=== PATIENT | female | born 1945 | race Caucasian/White ===

== ENCOUNTER → 2017-01-17 | Outpatient (CLI) | payer OTHER | LOC: FIMAGING 07:22 | DX: Z12.31 Encounter for screening mammogram for malignant neoplasm of breast (principal) | CPT/HCPCS: G0202 ==

== ENCOUNTER → 2018-01-19 | Outpatient (CLI) | payer OTHER | LOC: FIMAGING 09:28 | PROVIDERS: ATTEND Internal Medicine | DX: Z12.31 Encounter for screening mammogram for malignant neoplasm of breast (principal) ==

== ENCOUNTER 2018-03-13 19:17 | Observation (INO) | payer OTHER ==
[2018-03-13] MEDS ORDERED: NS 500 ML IV ONE (19:35)
[2018-03-13] MEDS ORDERED: ACETAMINOPHEN 500 MG TAB PO ONE (19:37)
[2018-03-13] MEDS ORDERED: ONDANSETRON 4 MG/2 ML VIAL IVP ONE (19:52)
--- NOTE | 2018-03-13 20:19 | EDPHY ---
H & P Time Seen by Provider: 03/13/18 19:35 HPI/ROS: HPI Diarrhea, C diff positive. 73-year-old female by private vehicle. This patient reports that she was treated with a 10 day course of amoxicillin starting on February 20. This was prescribe secondary to a facial infection. At about day 8 into this antibiotic course she developed watery diarrhea. This persisted. She finished the course of antibiotics. She reports that since Friday the diarrhea has worsened and become mucousy. She has also experienced intermittent fever and lower abdominal cramping. She saw her primary care physician recently regarding this complaint. Stool sample was obtained. She received a call from her primary care physician today stating that the sample came back positive for Clostridium difficile. She was told to come to the emergency department for evaluation. She reports that also today she developed nausea and started vomiting. She has had 3 episodes of vomiting. Describes this is nonbilious nonbloody. She denies any blood in her stool. ROS: Constitutional: No fever, no chills. No weakness. Eyes: No discharge. No changes in vision. ENT: No sore throat. No nasal congestion or rhinorrhea. Respiratory: No cough. No shortness of breath. Cardiac: No chest pain, no palpitations. Gastrointestinal: As above. Genitourinary: No hematuria. No dysuria or increased frequency with urination. Musculoskeletal: No back pain. No neck pain. No myalgias or arthralgias. Skin: No rashes. Neurological: No headache. No focal weakness or altered sensation. Past medical history: Hypertension, hypothyroid. Social history: Here by herself. Nonsmoker. No alcohol. Physical Exam: General Appearance: Alert, no distress. This patient is responding to questions appropriately and in full sentences. This patient appears well- hydrated and well-nourished. Eyes: Pupils equal and round no pallor or injection. No lid edema, erythema or injection. Respiratory: There are no retractions, lungs are clear to auscultation with good air movement bilaterally. Cardiovascular: Regular rate and rhythm. No murmur. Gastrointestinal: Abdomen is soft and nontender, no masses, bowel sounds normal. No focal tenderness at McBurney's point. No Wahl sign. Neurological: Motor sensory function is grossly intact. Cranial nerves are normal. Gait is normal. Skin: Warm and dry, no rashes. Musculoskeletal: Neck is supple and nontender. Extremities are symmetrical. All joints range without pain or impingement. Psychiatric: No agitation. No depression. Database: EKG: Imaging: Procedures: Emergency department course: Patient had an episode of bilious vomiting in the emergency department shortly after arrival. Vital signs reviewed. She is moderately hypertensive. Febrile at 38.9. IV was placed. She was started on IV normal saline with 500 cc to 1 L to be given over the next 1-2 hours. She was given 4 mg of IV Zofran and 20 mg of IV Pepcid. After nausea and vomiting controlled. The patient was given 125 mg of oral vancomycin. 10:30 p.m., patient re-evaluated. Resting comfortably at this time. She has had no further vomiting. She has received 1 L of IV normal saline. She states she is feeling better. Fever resolved. Heart rate currently 97. I discussed the results of her diagnostic testing. She lives alone. She does not want to be discharged tonight. We will admit her to the hospitalist service overnight for observation and IV fluid hydration. Hospitalist paged. 11:35 p.m., spoke with hospitalist, Dr. Arizmendi. Case discussed in detail with her. She accepts this patient for admission. The patient's remaining emergency department course under my care has been uneventful. She was admitted in stable condition to the hospitalist service. Differential Diagnosis: The differential diagnosis on this patient includes but is not limited to Clostridium difficile colitis, enteritis, food-borne illness. This represents a partial list of diagnoses considered. These considerations are based on history, physical exam, past history, reassessment and diagnostic testing. Smoking Status: Never smoked Constitutional: Initial Vital Signs Temperature (C) 38.9 C H 03/13/18 19:22 Heart Rate 96 03/13/18 19:22 Respiratory Rate 18 03/13/18 19:22 Blood Pressure 167/80 H 03/13/18 19:22 O2 Sat (%) 94 03/13/18 19:22 O2 Delivery Mode Room Air Allergies/Adverse Reactions: Estrogens Allergy (Verified 03/13/18 19:28) Sulfa (Sulfonamide Antibiotics) Allergy (Verified 03/13/18 19:28) MOLDS Allergy (Uncoded 03/13/18 19:28) PEANUTS Allergy (Uncoded 03/13/18 19:28) SEAFOOD Allergy (Uncoded 03/13/18 19:28) Home Medications: Medication Instructions Recorded Calcium/D3/Mag Ox/Documentation Nurse/Dmitry/Zn 1 each PO BID 03/14/18 [Caltrate+D3 Plus Mineral Minis] Folic Acid [Folic Acid 1 MG (*)] 1 mg PO DAILY 03/14/18 Iron/Docusate Sodium 1 each PO BID 03/14/18 [Germán-Sequels 50 mg] Levothyroxine [Synthroid 50 mcg 50 mcg PO DAILY06 03/14/18 (*)] Lisinopril/Hctz 10/12.5 mg 2 ea PO DAILY 03/14/18 [Zestoretic/Prinzide 10/12.5MG (*)] Multivitamins [Multivitamin (*)] 1 each PO DAILY 03/14/18 Ondansetron Odt [Zofran Odt 4 mg 4 mg PO Q6H PRN #10 tab 03/14/18 (*)] Vancomycin [Vancomycin (*)] 125 mg PO Q6 #40 cap 03/14/18 traMADol [Ultram 50 mg (*)] 50 mg PO QID 03/14/18 Medical Decision Making - Data Points Laboratory Results: Laboratory Results 03/13/18 20:00 03/13/18 20:00 Microbiology Results: MICROBIOLOGY 03/13/18 20:00 Blood Blood Culture - Preliminary 03/13/18 20:05 Blood Blood Culture - Preliminary Medications Given: Discontinued Medications Acetaminophen (Tylenol) 1,000 mg PO EDNOW ONE Stop: 03/13/18 19:38 Last Admin: 03/13/18 19:54 Dose: 1,000 mg Sodium Chloride (Ns) 500 mls @ 0 mls/hr IV ONCE ONE; Wide Open PRN Reason: Protocol Stop: 03/13/18 19:36 Last Admin: 03/13/18 19:55 Dose: 500 mls Famotidine/Sodium Chloride (Pepcid 20 Mg (Premix)) 50 mls @ 200 mls/hr IV EDNOW ONE Stop: 03/13/18 20:36 Last Admin: 03/13/18 20:46 Dose: 50 mls Sodium Chloride (Ns) 1,000 mls @ 125 mls/hr IV CONT WILLIE Stop: 09/09/18 22:59 Last Admin: 03/14/18 05:42 Dose: 1,000 mls Levothyroxine Sodium (Synthroid) 50 mcg PO DAILY06 WILLIE Stop: 09/10/18 05:59 Last Admin: 03/14/18 05:42 Dose: 50 mcg Ondansetron HCl (Zofran) 4 mg IVP EDNOW ONE Stop: 03/13/18 19:53 Last Admin: 03/13/18 19:55 Dose: 4 mg Vancomycin HCl (Vancocin Oral Liquid) 125 mg PO QID ONE PRN Reason: Protocol Stop: 03/13/18 20:24 Last Admin: 03/13/18 20:46 Dose: 125 mg Vancomycin HCl (Vancocin Oral Liquid) 125 mg PO Q6H WILLIE PRN Reason: Protocol Stop: 04/13/18 02:59 Last Admin: 03/14/18 09:43 Dose: 125 mg Departure - Departure Disposition: [facility] Acute Clinical Impression: Clostridium difficile colitis
[2018-03-13 20:20] LABS: PLATELET COUNT 263 10^3/uL (150-400)
[2018-03-13] MEDS ORDERED: FAMOTIDINE 20 MG/NACL 50 ML IV ONE (20:22)
[2018-03-13] MEDS ORDERED: VANCOMYCIN 125 MG/2.5 ML UDL PO ONE (20:23)
[2018-03-13] MEDS: NS 1,000 ML IV SCH (22:59)
[2018-03-13] MEDS ORDERED: NS 1,000 ML IV SCH (23:45)
[2018-03-13] MEDS ORDERED: ONDANSETRON 4 MG/2 ML VIAL IVP PRN (23:49)
[2018-03-13] MEDS ORDERED: ACETAMINOPHEN 325 MG TAB PO PRN (23:49)
[2018-03-13] MEDS ORDERED: LORazepam 0.5 MG TAB PO PRN (23:49)
[2018-03-13] MEDS ORDERED: HYDROCODONE/APAP 5/325 TAB PO PRN (23:49)
--- NOTE | 2018-03-14 00:24 | PDGENHP ---
History and Physical - Chief Complaint Nausea, vomiting, diarrhea and abdominal pain the, C diff positive - History of Present Illness Source-patient provides history appears reliable. EMR was reviewed and case discussed with ED provider. HPI-this is a pleasant 73-year-old female with past medical history significant for HTN, hypothyroidism who presents emergency department today after she was called by PCP regarding a positive C diff study. Patient was treated with amoxicillin on 02/20/2018. Day 8. Of 10 patient reports that she developed watery diarrhea without any melena hematochezia. Four days ago patient reports that she began to develop some chills. She continued to have watery diarrhea. She also developed some abdominal cramping. Today patient reports that she developed a fever as well as nausea vomiting nonbilious nonbloody. Additionally secondary to her ongoing diarrhea patient has had declining oral intake and decreased appetite. History Information - Allergies/Home Medication List Allergies/Adverse Reactions: Estrogens Allergy (Verified 03/13/18 19:28) Sulfa (Sulfonamide Antibiotics) Allergy (Verified 03/13/18 19:28) MOLDS Allergy (Uncoded 03/13/18 19:28) PEANUTS Allergy (Uncoded 03/13/18 19:28) SEAFOOD Allergy (Uncoded 03/13/18 19:28) Home Medications: Calcium/D3/Mag Ox/Shipsmith/Dmitry/Zn [Caltrate+D3 Plus Mineral Minis] 1 each PO [Last Taken Unknown] Centrum Silver 03/13/18 [Last Taken Unknown] Folic Acid 1 mg PO 03/13/18 [Last Taken Unknown] Iron/Docusate Sodium [Germán-Sequels 50 mg] 1 each PO BID 03/13/18 [Last Taken Unknown] Levothyroxine [Synthroid 50 mcg (*)] 50 mcg PO DAILY06 03/13/18 [Last Taken Unknown] Lisinopril/Hctz 20/12.5MG [Zestoretic/Prinzide 20/12.5MG (*)] 03/13/18 [Last Taken Unknown] Lisinopril/Hctz 20/12.5MG [Zestoretic/Prinzide 20/12.5MG (*)] 1 ea PO DAILY [Last Taken Unknown] Tramadol HCl 50 mg PO 03/13/18 [Last Taken Unknown] I have personally reviewed and updated: family history, medical history, social history, surgical history - Past Medical History hypertension Additional medical history: Hypothyroidism - Surgical History Additional surgical history: Colonoscopy - Family History Additional family history: Ewpigpxh-Dnuse-Czjzyir - Social History Smoking Status: Never smoked Alcohol Use: None Drug Use: None Additional social history: Cor status-full Review of Systems Review of Systems: ROS: 10pt was reviewed & negative except for what was stated in HPI & below Constitutional: Reports: chills, fever, other (Decreased appetite) EENMT: Denies: nose congestion, sore throat, throat swelling Cardiac: Reports: no symptoms Respiratory: Reports: no symptoms Gastrointestinal: Reports: vomitting, abdominal pain, abdominal distention, diarrhea, nausea. Denies: black stools Genitourinary: Reports: no symptoms Muscolosketal: Reports: no symptoms Skin: Reports: no symptoms Neurological: Reports: no symptoms. Denies: anxiety, depressed, headache, numbness, tingling, weakness Hematologic/Lymphatic: Reports: no symptoms Physical Exam Physical Exam: Selected Entries 03/13/18 19:22 Blood Pressure Automatic Method Heart Rate 96 Respiratory 18 Rate O2 Sat (%) 94 Temperature (C) 38.9 C H Blood Pressure 167/80 H Mean Arterial 109 H Pressure (MAP) O2 Delivery Room Air Mode Temperature Oral Source Temp Pulse Resp BP Pulse Ox 38.9 C H 98 18 143/76 H 96 03/13/18 19:22 03/13/18 23:06 03/13/18 23:06 03/13/18 23:06 03/13/18 23:06 Constitutional: no apparent distress, appears nourished, other (NAD. Patient is resting quietly in bed. Pleasant cooperative.) Eyes: PERRL, anicteric sclera, EOMI Ears, Nose, Mouth, Throat: dry mucous membranes, other (No nasal discharge), No poor dentition (Dentition in fair condition with repair.) Cardiovascular: regular rate and rhythym, no murmur, rub, or gallop, pulses symmetric bilaterally, edema (Trace nonpitting lower extremity edema.) Peripheral Pulses: 2+: dorsalis-pedis (R), dorsalis-pedis (L) Respiratory: no respiratory distress, no rales or rhonchi, clear to auscultation , No respiratory distress Gastrointestinal: normoactive bowel sounds, no palpable masses, tenderness ( Minimal tenderness to palpation lower abdomen. No rebound or guarding), distension, No guarding, No rebound Genitourinary: no bladder tenderness, No stephenson in urethra Skin: warm, normal color, No rash Musculoskeletal: full muscle strength, other (The patient sits up independently. Moves all extremities.), No generalized weakness Neurologic: AAOx3, sensation intact bilaterally, other (Grossly nonfocal exam.) , No facial droop Psychiatric: interacting appropriately, not anxious, not encephalopathic, thought process linear, other (Pleasant and cooperative.) Lab Data & Imaging Review 03/13/18 20:00 03/13/18 20:00 WBC 6.64 10^3/uL (3.80-9.50) 03/13/18 20:00 RBC 4.30 10^6/uL (4.18-5.33) 03/13/18 20:00 Hgb 12.6 g/dL (12.6-16.3) 03/13/18 20:00 Hct 37.7 % (38.0-47.0) L 03/13/18 20:00 MCV 87.7 fL (81.5-99.8) 03/13/18 20:00 MCH 29.3 pg (27.9-34.1) 03/13/18 20:00 MCHC 33.4 g/dL (32.4-36.7) 03/13/18 20:00 RDW 13.5 % (11.5-15.2) 03/13/18 20:00 Plt Count 263 10^3/uL (150-400) 03/13/18 20:00 MPV 10.5 fL (8.7-11.7) 03/13/18 20:00 Neut % (Auto) 83.5 % (39.3-74.2) H 03/13/18 20:00 Lymph % (Auto) 6.0 % (15.0-45.0) L 03/13/18 20:00 [place] % (Auto) 8.3 % (4.5-13.0) 03/13/18 20:00 Eos % (Auto) 1.4 % (0.6-7.6) 03/13/18 20:00 Baso % (Auto) 0.6 % (0.3-1.7) 03/13/18 20:00 Nucleat RBC Rel Count 0.0 % (0.0-0.2) 03/13/18 20:00 Absolute Neuts (auto) 5.54 10^3/uL (1.70-6.50) 03/13/18 20:00 Absolute Lymphs (auto) 0.40 10^3/uL (1.00-3.00) L 03/13/18 20:00 Absolute Monos (auto) 0.55 10^3/uL (0.30-0.80) 03/13/18 20:00 Absolute Eos (auto) 0.09 10^3/uL (0.03-0.40) 03/13/18 20:00 Absolute Basos (auto) 0.04 10^3/uL (0.02-0.10) 03/13/18 20:00 Absolute Nucleated RBC 0.00 10^3/uL (0-0.01) 03/13/18 20:00 Immature Gran % 0.2 % (0.0-1.1) 03/13/18 20:00 Immature Gran # 0.01 10^3/uL (0.00-0.10) 03/13/18 20:00 RBC/WBC/PLT Morphology TNP 03/13/18 20:00 Platelet Estimate TNP 03/13/18 20:00 VBG Lactic Acid 1.2 mmol/L (0.7-2.1) 03/13/18 20:00 Sodium 134 mEq/L (135-145) L 03/13/18 20:00 Potassium 3.4 mEq/L (3.3-5.0) 03/13/18 20:00 Chloride 94 mEq/L (97-110) L 03/13/18 20:00 Carbon Dioxide 25 mEq/l (22-31) 03/13/18 20:00 Anion Gap 15 mEq/L (8-16) 03/13/18 20:00 BUN 39 mg/dL (7-23) H 03/13/18 20:00 Creatinine 0.9 mg/dL (0.6-1.0) 03/13/18 20:00 Estimated GFR > 60 03/13/18 20:00 Glucose 124 mg/dL (70-100) H 03/13/18 20:00 Calcium 10.1 mg/dL (8.5-10.4) 03/13/18 20:00 Total Bilirubin 0.7 mg/dL (0.1-1.4) 03/13/18 20:00 Conjugated Bilirubin 0.5 mg/dL (0.0-0.5) 03/13/18 20:00 Unconjugated Bilirubin 0.2 mg/dL (0.0-1.1) 03/13/18 20:00 AST 29 IU/L (14-46) 03/13/18 20:00 ALT 48 IU/L (9-52) 03/13/18 20:00 Alkaline Phosphatase 72 IU/L (38-126) 03/13/18 20:00 Total Protein 6.5 g/dL (6.3-8.2) 03/13/18 20:00 Albumin 3.7 g/dL (3.5-5.0) 03/13/18 20:00 Urine Color YELLOW 03/13/18 22:50 Urine Appearance HAZY 03/13/18 22:50 Urine pH 5.0 (5.0-7.5) 03/13/18 22:50 Ur Specific [place] 1.017 (1.002-1.030) 03/13/18 22:50 Urine Protein NEGATIVE (NEGATIVE) 03/13/18 22:50 Urine Ketones 1+ (NEGATIVE) H 03/13/18 22:50 Urine Blood 2+ (NEGATIVE) H 03/13/18 22:50 Urine Nitrate NEGATIVE (NEGATIVE) 03/13/18 22:50 Urine Bilirubin NEGATIVE (NEGATIVE) 03/13/18 22:50 Urine Urobilinogen NEGATIVE EU (0.2-1.0) 03/13/18 22:50 Ur Leukocyte Esterase NEGATIVE (NEGATIVE) 03/13/18 22:50 Urine RBC 25-50 /hpf (0-3) H 03/13/18 22:50 Urine WBC 3-5 /hpf (0-3) H 03/13/18 22:50 Ur Epithelial Cells TRACE /lpf (NONE-1+) 03/13/18 22:50 Urine Mucus TRACE /lpf (NONE-1+) 03/13/18 22:50 Urine Glucose NEGATIVE (NEGATIVE) 03/13/18 22:50 C. difficile Tox (PCR) POSITIVE (NEGATIVE) H 03/13/18 19:34 Assessment & Plan Assessment: Pleasant 73-year-old female with history HTN, hypothyroidism who presents emergency department after she was tested positive for C diff following a course of amoxicillin. Clostridium difficile colitis (Acute) - status post single dose of vancomycin p. O.. Will continue dosing. Isolation precautions. Nausea and vomiting - improve after antiemetics. Continue with the Zofran p.r.n. Dehydration - encourage oral intake as tolerated. IV fluids overnight for supplementation. Patient does appear dry. Hyponatremia - secondary to hypovolemia. Continue with IV fluids as noted above. Hypochloremia - in setting of dehydration hypovolemia and hyponatremia. Repeat BMP in the morning. Hyperglycemia-mildly elevated and nonfasting lab. Will plan to repeat a.m. BMP in the morning. No history of diabetes. Regular diet is ordered. Chronic medical problems Benign essential hypertension - blood pressure is slightly elevated but acceptable at this time in 73-year-old lady. Resume her home medications after patient is sufficiently hydrated given she is in the lisinopril HCTZ combination. Hydralazine overnight p.r.n. For significantly elevated blood pressures only. Hypothyroidism - resume patient's levothyroxine. FEN - IV fluids overnight as noted above. Electrolyte monitoring replacement if needed. Advance diet to regular as tolerated. PPX-SCDs and consider Lovenox if patient should stay additional day otherwise at this time will encourage ambulation and mobilization. Anticipate short hospital stay. Cor status-full Disposition-patient admitted observation status on the medical floor at this time for IV fluid hydration and treatment of her C diff.
[2018-03-14] MEDS ORDERED: hydrALAZINE 20 MG/ML VIAL IVP PRN (00:41)
[2018-03-14] MEDS: VANCOMYCIN 125 MG/2.5 ML UDL PO SCH ×2 (03:53→09:43)
[2018-03-14] MEDS: NS 1,000 ML IV SCH (05:42)
[2018-03-14 05:59] LABS: PLATELET COUNT 201 10^3/uL (150-400)
[2018-03-14] MEDS ORDERED: LEVOTHYROXINE 50 MCG TAB PO SCH (06:00)
--- NOTE | 2018-03-14 08:35 | HOSPPROG ---
Hospitalist Progress Note Assessment/Plan: #C diff infection: #Hypovolemic hyponatremia: resolved with IVFs #Mild rhabdo: improved with IVFs Objective: Vital Signs Temp Pulse Resp BP Pulse Ox 37.5 C 85 16 125/55 H 93 03/14/18 04:00 03/14/18 04:00 03/14/18 04:00 03/14/18 04:00 03/14/18 04:00 Laboratory Results 03/14/18 05:00 03/14/18 05:00 03/13/18 03/14/18 03/15/18 05:59 05:59 05:59 Intake Total 1350 Output Total 420 Balance 930 ICD10 Worksheet Patient Problems: Problems Problem Status Onset Clostridium difficile colitis Acute
[2018-03-14 12:01] VITALS: BP 131/65
--- NOTE | 2018-03-14 12:10 | ASMTCMCOM ---
CM Note CM Note Notes: Spoke w/RN, pt will dc home independent, no needs identified. CM available for any changes. DC Plan: Independent Date Signed: 03/14/2018 12:10 PM Electronically Signed By:Pooja Zamudio RN
--- NOTE | 2018-03-14 17:15 | GDS ---
[f rep st] DISCHARGE SUMMARY DISCHARGE DIAGNOSES: 1. Acute Clostridium difficile colitis. 2. Hypovolemic hyponatremia. 3. Hypertension. 4. Hypothyroidism. HPI: A 73-year-old female with a history of hypertension, hypothyroidism, presents to the ER after h er PCP called with a positive C difficile study. Patient was treated with amoxicillin on 02/20/2018, day 8/10, for an upper respiratory infection. She reports that she developed watery diarrhea withou t blood or melena. She did have some chills 4 days ago. HOSPITAL COURSE BY PROBLEM: 1. Acute C difficile colitis: Patient is much improved today. She was prescribed vancomycin q.i.d. for 10 days. 2. Nausea, vomiting. This has resolved. Provided p.r.n. Zofran. 3. Hypovolemic hyponatremia. Again, resolved with IV fluids. 4. Benign hypertension. Resume home medications. 5. Hypothyroidism. Synthroid. DISPOSITION: Patient is stable for discharge home. She was given education on hygiene and exposure to family. NEW MEDICATIONS: 1. Vancomycin 125 mg q.6 hours. 2. Zofran. FOLLOWUP: Her PCP. PHYSICAL EXAM: VITAL SIGNS: Today, temperature 37.7, blood pressure 131/65. Heart rate is in the 9 0s, respirations 14, 91% on room air. GENERAL: Well appearing, in no acute distress, smiling. HEEN T: PERRLA. Moist mucous membranes. CV: Regular rhythm. LUNGS: Clear. ABDOMEN: Soft, nontender , nondistended. Positive bowel sounds. : No Ray. MUSCULOSKELETAL: 5/5 upper and lower extrem ity strength. NEUROLOGIC: 2-12 intact. PSYCH: Alert and oriented x3. TIME SPENT ON DISCHARGE: Greater 30 minutes bedside with patient education on hygiene, medication an d followup and coordinating discharge. /[id number]/MODL
[2018-03-15] MEDS ORDERED: MULTIVITAMINS 1 EACH TAB PO SCH (09:00)
== END 2018-03-14 12:34 | disposition home or self-care (01) ==
LOC: F3E 03-14 00:23
PROVIDERS: ADMIT Family Medicine; ATTEND Internal Medicine
DX: A04.72 Enterocolitis due to Clostridium difficile, not specified as recurrent (principal); E87.1 Hypo-osmolality and hyponatremia; E86.1 Hypovolemia; I10 Essential (primary) hypertension; E03.9 Hypothyroidism, unspecified
CPT/HCPCS: 96361; 96365; 96375; 99285; G0378; J2405

== ENCOUNTER → 2018-03-30 | Emergency (ER) | payer OTHER ==
[2018-03-30 18:54] VITALS: BP 118/95
== END | disposition home or self-care (01) ==
DX: Z03.89 Encounter for observation for other suspected diseases and conditions ruled out (principal)

== ENCOUNTER 2018-06-08 12:49 | Emergency (ER) | payer OTHER ==
[2018-06-08] MEDS ORDERED: ONDANSETRON 4 MG/2 ML VIAL IVP ONE (14:05)
[2018-06-08] MEDS ORDERED: NS 1,000 ML IV ONE ×2 (14:05→15:10)
--- NOTE | 2018-06-08 14:12 | EDPHY ---
H & P Time Seen by Provider: 06/08/18 13:49 HPI/ROS: CHIEF COMPLAINT: Nausea and vomiting HISTORY OF PRESENT ILLNESS: Patient initially was diagnosed with Clostridium difficile back in February, discharge summary dated 03/14/2018 personally reviewed. She initially had amoxicillin in January of this year which possibly was related. She had recurrent symptoms and had flexible sigmoidoscopy last Friday by Dr. Meneses, and was restarted on oral vancomycin 5 days ago. She presents today with nausea and vomiting just today with some abdominal discomfort. She says she feels a lot better after vomiting and thinks that she is just not tolerating her oral vancomycin. Diarrhea at this time is minimal. Not associated with fever or chills, no coffee-ground emesis or hematemesis. REVIEW OF SYSTEMS: Eye: no change in vision ENT: no sore throat Cardiac: no chest pain or syncope Pulmonary: no cough or SOB Abdomen: HPI Musculoskeletal: no back pain Skin: no rash Neuro: no headache Constitutional: no fever : no urinary symptoms A comprehensive 10 point review of systems is otherwise negative aside from elements mentioned in the history of present illness. PAST MEDICAL HISTORY: Includes hypertension and hypothyroid, atrial fibrillation, Clostridium difficile diarrhea. On Eliquis. Social history: Nonsmoker General Appearance: Alert and conversant, cooperative. Eyes: No scleral icterus. ENT, Mouth: Dry mucous membranes. Respiratory: Normal respiratory effort, breath sounds equal, lungs are clear to auscultation. Cardiovascular: Regular rate and rhythm. Gastrointestinal: Abdomen is soft and non tender. Neurological: Alert, face symmetric, normal motor and sensory in extremities. Skin: Warm and dry, no rashes. Musculoskeletal: No peripheral edema. Psychiatric: Not agitated. Emergency Department course/MDM: Zofran 4 mg IV and normal saline hydration. Consultation with her director of procurement Dr. Eubanks recommends discontinuing vancomycin, changing to Dificid 200mg po bid x 10 days. Discussed with patient including potential high cost of medication, consented. 1530: Patient noted to have elevated heart rate on EKG, known atrial fibrillation at 138. 2 L IV normal saline, metoprolol 5 mg IV x3. She is currently on Bystolic and metoprolol but had vomited all her medications today, also dehydrated. Ischemia unlikely. She is on Eliquis, will continue that. Patient would like to go home which I think is reasonable, if we would get her nausea controlled and her heart rate controlled. She looks well. No vomiting in the ED. 1540: Discussed with Dr. Jones who will help coordinate outpatient followup. Smoking Status: Never smoked Constitutional: Initial Vital Signs Temperature (C) 37.3 C 06/08/18 12:52 Heart Rate 114 H 06/08/18 12:52 Respiratory Rate 18 06/08/18 12:52 Blood Pressure 112/90 H 06/08/18 12:52 O2 Sat (%) 94 06/08/18 12:52 O2 Delivery Mode Room Air Allergies/Adverse Reactions: Estrogens Allergy (Verified 04/28/18 11:35) Sulfa (Sulfonamide Antibiotics) Allergy (Verified 04/28/18 11:35) MOLDS Allergy (Uncoded 03/13/18 19:28) PEANUTS Allergy (Uncoded 03/13/18 19:28) SEAFOOD Allergy (Uncoded 03/13/18 19:28) Home Medications: Medication Instructions Recorded Calcium/D3/Mag Ox/[employer]/Dmitry/Zn 1 each PO BID 03/14/18 [Caltrate+D3 Plus Mineral Minis] Folic Acid [Folic Acid 1 MG (*)] 1 mg PO DAILY 03/14/18 Iron/Docusate Sodium 1 each PO BID 03/14/18 [Germán-Sequels 50 mg] Levothyroxine [Synthroid 50 mcg 50 mcg PO DAILY06 03/14/18 (*)] Lisinopril/Hctz 10/12.5 mg 2 ea PO DAILY 03/14/18 [Zestoretic/Prinzide 10/12.5MG (*)] Multivitamins [Multivitamin (*)] 1 each PO DAILY 03/14/18 Ondansetron Odt [Zofran Odt 4 mg 4 mg PO Q6H PRN #10 tab 03/14/18 (*)] Vancomycin [Vancomycin (*)] 125 mg PO Q6 #40 cap 03/14/18 traMADol [Ultram 50 mg (*)] 50 mg PO QID 03/14/18 Apixaban [Eliquis 30-day Starter 1 kit PO AD #1 kit 04/28/18 Pack] Fidaxomicin [Dificid 200 MG (*)] 200 mg PO BID 10 Days tab 06/08/18 Ondansetron Odt [Zofran Odt] 4 mg PO Q4PRN #10 tab 06/08/18 Medical Decision Making - Diagnostics EKG Interpretation: 12-lead EKG interpreted by me; official reading is in computer system. My interpretation is atrial fibrillation rate 138 Differential Diagnosis: Differential diagnosis considered for nausea and vomiting including but not limited to gastroenteritis, gastritis, appendicitis, and medication side effect. - Data Points Laboratory Results: Laboratory Results 06/08/18 14:48 06/08/18 14:48 06/08/18 06/08/18 14:48 14:48 WBC 12.98 10^3/uL H 10^3/uL (3.80-9.50) RBC 5.24 10^6/uL 10^6/uL (4.18-5.33) Hgb 15.2 g/dL g/dL (12.6-16.3) Hct 44.7 % % (38.0-47.0) MCV 85.3 fL fL (81.5-99.8) MCH 29.0 pg pg (27.9-34.1) MCHC 34.0 g/dL g/dL (32.4-36.7) RDW 14.2 % % (11.5-15.2) Plt Count 187 10^3/uL 10^3/uL (150-400) MPV 11.4 fL fL (8.7-11.7) Neut % (Auto) 91.1 % H % (39.3-74.2) Lymph % (Auto) 3.0 % L % (15.0-45.0) [place] % (Auto) 5.3 % % (4.5-13.0) Eos % (Auto) 0.2 % L % (0.6-7.6) Baso % (Auto) 0.2 % L % (0.3-1.7) Nucleat RBC Rel Count 0.0 % % (0.0-0.2) Absolute Neuts (auto) 11.82 10^3/uL H 10^3/uL (1.70-6.50) Absolute Lymphs (auto) 0.39 10^3/uL L 10^3/uL (1.00-3.00) Absolute Monos (auto) 0.69 10^3/uL 10^3/uL (0.30-0.80) Absolute Eos (auto) 0.03 10^3/uL 10^3/uL (0.03-0.40) Absolute Basos (auto) 0.03 10^3/uL 10^3/uL (0.02-0.10) Absolute Nucleated RBC 0.00 10^3/uL 10^3/uL (0-0.01) Immature Gran % 0.2 % % (0.0-1.1) Immature Gran # 0.03 10^3/uL 10^3/uL (0.00-0.10) RBC/WBC/PLT Morphology TNP Platelet Estimate TNP Sodium 137 mEq/L mEq/L (135-145) Potassium 3.9 mEq/L mEq/L (3.3-5.0) Chloride 98 mEq/L mEq/L (97-110) Carbon Dioxide 30 mEq/l mEq/l (22-31) Anion Gap 9 mEq/L mEq/L (8-16) BUN 30 mg/dL H mg/dL (7-23) Creatinine 0.6 mg/dL mg/dL (0.6-1.0) Estimated GFR > 60 Glucose 116 mg/dL H mg/dL (70-100) Calcium 11.0 mg/dL H mg/dL (8.5-10.4) Phosphorus 3.9 mg/dL mg/dL (2.5-4.5) Medications Given: Discontinued Medications Sodium Chloride (Ns) 1,000 mls @ 0 mls/hr IV EDNOW ONE; Wide Open PRN Reason: Protocol Stop: 06/08/18 14:06 Last Admin: 06/08/18 14:50 Dose: 1,000 mls Sodium Chloride (Ns) 1,000 mls @ 0 mls/hr IV EDNOW ONE; Wide Open PRN Reason: Protocol Stop: 06/08/18 15:11 Last Admin: 06/08/18 15:29 Dose: 1,000 mls Metoprolol Tartrate (Lopressor Injection) 5 mg IVP Q5M WILLIE Stop: 06/08/18 15:41 Last Admin: 06/08/18 16:11 Dose: 5 mg Ondansetron HCl (Zofran) 4 mg IVP EDNOW ONE Stop: 06/08/18 14:06 Last Admin: 06/08/18 14:50 Dose: 4 mg Departure - Departure Disposition: Home, Routine, Self-Care Clinical Impression: Nausea & vomiting Qualifiers: Vomiting type: unspecified Vomiting Intractability: non-intractable Qualified Code(s): R11.2 - Nausea with vomiting, unspecified Atrial fibrillation Qualifiers: Atrial fibrillation type: paroxysmal Qualified Code(s): I48.0 - Paroxysmal atrial fibrillation Condition: Good Instructions: Acute Nausea and Vomiting (ED) Additional Instructions: Stop vancomycin; start Dificid as recommended by GI of the [facility]. Continue cardiac medications as prescribed. Referrals: Renu Jones MD [Primary Care Provider] - As per Instructions Prescriptions: Fidaxomicin [Dificid 200 MG (*)] 200 mg PO BID 10 Days tab Ondansetron Odt [Zofran Odt] 4 mg PO Q4PRN #10 tab
[2018-06-08 15:01] LABS: PLATELET COUNT 187 10^3/uL (150-400)
--- NOTE | 2018-06-08 15:10 | CPEKG ---
Test Reason : OPEN Blood Pressure : / mmHG Vent. Rate : 138 BPM Atrial Rate : 138 BPM P-R Int : 168 ms QRS Dur : 071 ms QT Int : 305 ms P-R-T Axes : 047 073 262 degrees QTc Int : 462 ms Atrial fibrillation Repolarization abnormality, prob rate related Confirmed by Avila Doan ([id number]) on 06/08/2018 3:10:16 PM Referred By: Confirmed By:Avila Doan
[2018-06-08] MEDS ORDERED: METOPROLOL TARTRATE 5 MG/5 ML INJ ONE (15:24)
[2018-06-08] MEDS: METOPROLOL TARTRATE 5 MG/5 ML INJ IVP SCH ×3 (15:29→16:11)
[2018-06-08 16:07] VITALS: BP 145/94
== END 2018-06-08 17:11 | disposition home or self-care (01) ==
DX: R11.2 Nausea with vomiting, unspecified (principal); I10 Essential (primary) hypertension; I48.91 Unspecified atrial fibrillation; E86.9 Volume depletion, unspecified
CPT/HCPCS: 93005; 96361; 96374; 96376; 99284; J2405

== ENCOUNTER → 2019-01-20 | Outpatient (CLI) | payer OTHER | LOC: EMCIMAGING 09:19 | PROVIDERS: ATTEND Internal Medicine | DX: Z12.31 Encounter for screening mammogram for malignant neoplasm of breast (principal) | CPT/HCPCS: 77067-PN ==